=== PATIENT | female | born 1995 ===

== ENCOUNTER 2019-08-24 10:19 | Emergency (ER) | payer MEDICAID ==
[~2019-08-24] VITALS: Ht 160 cm; Wt 61.4 kg
[2019-08-24] MEDS ORDERED: ERYTHROMYCIN 0.5% 3.5 GM TUBE OPHTHALMIC OINTMENT OD ONE (13:30)
[2019-08-24 14:40] VITALS: BP 130/73
== END 2019-08-24 14:45 | disposition home or self-care (01) ==
LOC: EMS 10:25
DX: H00.011 Hordeolum externum right upper eyelid (principal); L03.317 Cellulitis of buttock; F17.210 Nicotine dependence, cigarettes, uncomplicated; F12.90 Cannabis use, unspecified, uncomplicated
CPT/HCPCS: 99406